=== PATIENT | male | born 2000 | race Native Hawaiian/Other Pacific Islander ===

== ENCOUNTER → 2023-06-13 | Outpatient (CLI) | payer OTHER ==
[2023-06-14 04:06] LABS: MUMPS VIRUS IGG ANTIBODY 81.4 AU/mL (Immune >10.9)
[2023-06-14 05:07] LABS: VARICELLA ZOSTER IGG AB TITER <135 index (Immune >165)
== END | disposition home or self-care (01) ==
LOC: LABMN 09:53
PROVIDERS: ATTEND Internal Medicine
DX: Z02.1 Encounter for pre-employment examination (principal)
CPT/HCPCS: 86706; 86735; 86762; 86765; 86787